=== PATIENT | male | born 1960 | race Caucasian/White ===

== ENCOUNTER 2021-11-09 09:57 | Observation (INO) | payer OTHER ==
[~2021-11-09] VITALS: Ht 172.7 cm; Wt 72.6 kg
[~2021-11-09 09:57] MED LIST: Advil200 M1 PO; HYDACE5 PO; ZESTORETIC 20-121 EA
[2021-11-09] MEDS ORDERED: IRBESARTAN150 M3 PO (10:10)
[2021-11-09 10:39] LABS: BASOPHILS ABSOLUTE AUTO 0.05 K/mm3 (0.00-0.23); BASOPHILS PERCENT AUTO 0 % (0-2); EOSINOPHILS ABSOLUTE AUTO 0.22 K/mm3 (0.00-0.68); EOSINOPHILS PERCENT AUTO 2 % (0-6); Hematocrit 46.2 % (37.0-53.0); Hemoglobin 15.5 g/dL (13.5-17.5); IMMATURE GRAN ABSOLUTE AUTO 0.04 K/mm3 (0.00-0.10); IMMATURE GRAN PERCENT AUTO 0 % (0-1); LYMPHOCYTES ABSOLUTE AUTO 1.08 K/mm3 (0.84-5.20); LYMPHOCYTES PERCENT AUTO 9 % (21-46); MONOCYTES ABSOLUTE AUTO 0.57 K/mm3 (0.16-1.47); MONOCYTES PERCENT AUTO 5 % (4-13); Mean Corpuscular HGB 30.5 pg (26.0-34.0); Mean Corpuscular HGB Conc 33.5 g/dL (31.5-36.5); Mean Corpuscular Volume 91 fL (80-100); NEUTROPHILS ABSOLUTE AUTO 9.47 K/mm3 (1.96-9.15); NEUTROPHILS PERCENT AUTO 83 % (41-73); Platelet Count 256 K/mm3 (150-400); RDW Coefficient Variation 12.2 % (11.7-14.2); RDW Standard Deviation 40.5 fL (35.1-46.3); Red Blood Cell Count 5.08 M/mm3 (4.30-5.90); White Blood Cell Count 11.43 K/mm3 (4.00-11.30)
[2021-11-09 10:57] LABS: Alanine Aminotransfer (ALT/SGP 30 U/L (12-78); Albumin, Blood 3.5 g/dL (3.4-5.0); Alk Phos 65 U/L (50-136); Anion Gap 6 mmol/L (6-16); Aspartate Aminotrans (AST/SGOT 24 U/L (12-37); Bilirubin, Total 0.6 mg/dL (0.1-1.0); Blood Urea Nitrogen 26 mg/dL (8-24); Bun/Creatinine Ratio 29.8 (12.0-20.0); CO2, Blood 26 mmol/L (21-32); Calcium, Blood 8.9 mg/dL (8.5-10.1); Chloride, Blood 107 mmol/L (98-108); Creatinine, Blood 0.87 mg/dL (0.60-1.20); Globulin, Blood 3.4 g/dL (2.2-4.0); Glomerular Filtration Rate >60 (60-); Glucose, Blood 127 mg/dL (70-99); Sodium, Blood 139 mmol/L (136-145); Total Protein, Blood 6.9 g/dL (6.4-8.2)
== END 2021-11-09 18:29 | disposition home or self-care (01) ==
LOC: ER 09:57 → MEDS 09:58
PROVIDERS: Physician Assistant; ADMIT Internal Medicine
DX: R55 Syncope and collapse (principal); G93.40 Encephalopathy, unspecified; S62.301A Unspecified fracture of second metacarpal bone, left hand, initial encounter for closed fracture; M19.011 Primary osteoarthritis, right shoulder; S09.90XA Unspecified injury of head, initial encounter; S43.51XA Sprain of right acromioclavicular joint, initial encounter; I10 Essential (primary) hypertension
CPT/HCPCS: 29125; 36415; 70450; 71045; 73030; 73130; 80053; 82550; 83880; 84484; 85025; 93005; 93010; 93306; 96374; 99285-25; A9270; J1885